=== PATIENT | female | born 1985 | race Caucasian/White ===

== ENCOUNTER 2018-12-04 12:34 | Outpatient (CLI) | payer BC ==
--- NOTE | 2018-12-04 14:15 | RAD ---
Hysterosalpingogram: DATE: 12/04/2018 HISTORY: 32-year-old female with infertility TECHNIQUE: Following placement of speculum, sterile HSG catheter placed through cervical canal and advanced into endometrial cavity. Both malformation of catheter. Introduction into the endometrial cavity. Contrast injected under fluoroscopy. Catheter removed. Spec ulum were removed. Patient tolerated procedure well. No complications. FINDINGS: Arcuate uterus. Multiple air bubbles within the endometrial cavity (visualized to be mobile during fl uoroscopy). Margins of the endometrial cavity smooth and normal. Configuration of fallopian tubes bilaterally normal. Free spillage demonstrated on the left. Catheter dislodgment due to balloon malfu nction such that spillage could not be obtained on the right. IMPRESSION: 1. Patent left fallopian tube. 2. Normal morphology of right fallopian tube. Indeterminate whether or not there is patency on the ri ght. 3. Arcuate uterus, anatomical variant.
== END 2018-12-04 12:35 | disposition home or self-care (01) ==
LOC: RAD 12:34
PROVIDERS: ATTEND Student in an Organized Health Care Education/Training Program
DX: Z31.41 Encounter for fertility testing (principal); Q51.810 Arcuate uterus
CPT/HCPCS: 58340; 74740

== ENCOUNTER 2019-01-29 14:43 | Outpatient (CLI) | payer BC ==
--- NOTE | 2019-01-29 16:02 | ULT ---
RIGHT BREAST ULTRASOUND: 01/29/19 HISTORY: 33-year-old female with focal pain at the 12 o'clock position of the right breast. FINDINGS: Sonographic evaluation of the right breast from the 12 to 3 o'clock position demonstrates no abnormal ity. IMPRESSION: BIRADS 2: Benign Finding(s) Routine annual screening mammography (for women over age 40). Age appropriate scanning based on risk factors is recommended. POS: OFF
== END 2019-01-29 14:44 | disposition home or self-care (01) ==
LOC: BICULT 14:43
PROVIDERS: ATTEND Student in an Organized Health Care Education/Training Program
DX: N64.4 Mastodynia (principal)

== ENCOUNTER 2019-03-26 09:27 | Outpatient (CLI) | payer BC ==
--- NOTE | 2019-03-26 14:01 | EKG ---
Test Reason : Blood Pressure : / mmHG Vent. Rate : 088 BPM Atrial Rate : 088 BPM P-R Int : 158 ms QRS Dur : 086 ms QT Int : 362 ms P-R-T Axes : 050 075 053 degrees QTc Int : 438 ms Normal sinus rhythm Normal ECG When compared with ECG of 13-FEB-2002 00:19, PREVIOUS ECG IS PRESENT Confirmed by PHANI BRUNER ([id number]) on 03/26/2019 2:01:08 PM Referred By: DONNA Confirmed By:PHANI BRUNER
== END 2019-03-26 09:28 | disposition home or self-care (01) ==
LOC: EKG 09:27
PROVIDERS: ATTEND Obstetrics & Gynecology
DX: R00.0 Tachycardia, unspecified (principal)
CPT/HCPCS: 93005; 93010

== ENCOUNTER 2019-08-31 19:00 | Inpatient (IN) | payer BC ==
[~2019-08-31 19:00] MED LIST: Bupivacaine 0.25% HCL 30 ML VIAL ONE
[2019-08-31 20:55] VITALS: BMI 37.5
[2019-08-31] MEDS ORDERED: hydrALAZINE 20 MG/ML VIAL SLOW IVP PRN (21:01)
[2019-08-31] MEDS ORDERED: Lidocaine 1% (PF) 30 ML VIAL SC PRN (21:01)
[2019-08-31] MEDS ORDERED: Ibuprofen 800 MG TAB PO PRN (21:01)
[2019-08-31] MEDS ORDERED: Misoprostol 200 MCG TAB PR PRN (21:01)
[2019-08-31] MEDS ORDERED: Diphenoxylate HCl/Atropine Tablet PO PRN (21:01)
[2019-08-31] MEDS ORDERED: Carboprost 250 MCG/ML AMP IM PRN (21:01)
[2019-08-31] MEDS ORDERED: Promethazine HCl 25 MG/ML VIAL IM PRN (21:01)
[2019-08-31] MEDS ORDERED: Acetaminophen 500 MG TAB PO PRN (21:01)
[2019-08-31] MEDS ORDERED: Methylergonovine 0.2 MG/ML VIAL IM PRN (21:01)
[2019-08-31] MEDS ORDERED: Butorphanol Tartrate 1 MG/ML VIAL SLOW IVP PRN (21:01)
[2019-08-31] MEDS ORDERED: HYDROcodone/Acetaminophen 5/325 mg Tablet PO PRN (21:01)
[2019-08-31] MEDS ORDERED: Ondansetron PF 4 MG/2 ML Vial IVP PRN (21:01)
[2019-08-31] MEDS ORDERED: NS w/ Oxytocin 10 units 500 ML IV SCH (21:15)
[2019-08-31] MEDS ORDERED: Penicillin G Potassium 5 MILL.UNITS in Sodium Chloride 0.9% 100 ML IVPB SCH (21:15)
[2019-08-31] MEDS: Lactated Ringer's 1,000 ML IV SCH (21:32)
[2019-08-31 21:58] LABS: Hemoglobin 10.2 g/dL (12.0-16.0); Mean Corpuscular HGB CONC 36.4 g/dL (32.0-36.0); Mean Corpuscular Hemoglobin 29.9 pg (27.0-31.0); Mean Corpuscular Volume 82.2 fL (78.0-98.0); Mean Platelet Volume 8.1 fL (7.4-10.4); Platelet Count 218 thou/uL (130-400); RBC Distribution Width 12.3 % (11.5-14.5); Red Blood Cell (RBC) Count 3.42 mill/uL (4.20-5.40); White Blood Cell (WBC) Count 8.7 thou/uL (4.8-10.8)
[2019-08-31] MEDS ORDERED: Misoprostol 100 MCG TAB VAG SCH (22:00)
[2019-08-31 22:36] LABS: Syphilis Antibody Nonreactive (Nonreactive); Syphilis Antibody Index 0.04 S/CO (<1.00 Non-Reactive)
[2019-08-31 23:07] LABS: HBSAg Index 0.19 S/CO (0-0.99); Hep B Surf Ag Non-Reactive S/CO (NonReactive)
[2019-09-01] MEDS ORDERED: Terbutaline Sulfate 1 MG/ML VIAL ONE (00:06)
[2019-09-01] MEDS: Terbutaline Sulfate 1 MG/ML VIAL SC SCH ×2 (00:07→00:27)
--- NOTE | 2019-09-01 00:36 | PDOC.EVN ---
Event Note - Event Note Event Note: I was called to room with pt in sudden severe back and abdominal pain. PT was just given 25mcg cytotect pv short time previously. abdomen hard. blood tinged clear fluid is draining vaginally. heart tones difficult to find. Pt bolused ivf. terb given 0.25mg. pain improved and contractions have become intermittent instead of continuous. heart tones obtained 100s and rising. baseline 120 with marked variability. ctx q1-2 min. pain reduced by 50%. second dose of terb given. no significant vaginal bleeding. will watch closely. It appears pt have a very exaggerated response to cytotec. Dr Stratton being updated by nurse.
[2019-09-01] MEDS: Penicillin G 2.5 MILL.units 2.5 MILL.UNITS in Premix Bag 1 BAG IVPB SCH ×4 (00:54→11:47)
[2019-09-01] MEDS ORDERED: Fentanyl 4 mcg/Bup 0.1% Cadd 100 ML ONE (02:12)
[2019-09-01] MEDS ORDERED: Acetaminophen 325 MG TAB PO PRN (02:43)
[2019-09-01] MEDS ORDERED: EPHEDRINE 25 MG/5 ML SYRINGE SLOW IVP PRN (02:43)
[2019-09-01] MEDS ORDERED: Naloxone HCl 0.4 mg/ml Vial IVP PRN ×2 (02:43)
[2019-09-01] MEDS ORDERED: Lactated Ringer's 500 ML IV PRN (02:43)
[2019-09-01] MEDS ORDERED: Ondansetron PF 4 MG/2 ML Vial IVP PRN ×2 (02:43→11:09)
[2019-09-01] MEDS ORDERED: diphenhydrAMINE 50 MG/ML VIAL IVP PRN (02:43)
[2019-09-01] MEDS ORDERED: Promethazine HCl 25 MG/ML VIAL IM PRN ×2 (02:43→11:09)
[2019-09-01] MEDS ORDERED: Communication Order-Pharmacy FS SCH (02:45)
[2019-09-01] MEDS ORDERED: Fentanyl 4 mcg/Bupivacaine 0.1% Cassette 100 ML EPIDURAL SCH (02:45)
[2019-09-01] MEDS: Lactated Ringer's 1,000 ML IV SCH (02:57)
[2019-09-01] MEDS: NS / Oxytocin 40 units/1000ml 1,000 ML IV PRN ×2 (05:40→07:40)
--- NOTE | 2019-09-01 06:15 | PDOC.LDHP ---
Labor and Delivery H&P Chief complaint: scheduled induction HPI: 33yo at 39w5d by LMP here for elective IOL. s/p cytotec x 1, SROM and spontaneous labor off of that. Current gestational age (weeks): 39 Due date: 09/03/19 Dating criteria: last menstrual period Grav: 4 Para: 2 Current complications: none Abnormal US findings: No Past Medical History: hashimotos, hx systemic mastocytosis Current medications: pre-corie vitamins Previous surgical history: dilation and curettage, other (breast reduction) Allergies/Adverse Reactions: Allergies Allergy/AdvReac Type Severity Reaction Status Date / Time cefaclor [From Ceclor] Allergy Intermediate Hives Verified 08/31/19 20:36 latex Allergy Mild Rash Verified 08/31/19 20:36 Social history: none - Physical Exam Vital signs reviewed and normal: yes General: NAD Heart: RRR Lungs: CTAB Abdomen: gravid Extremeties: no edema FHT: category 1 [place] contractions every: 2-3min - Vaginal Exam cm dilated: 10 Effacement: 100% Station: 3+ - OB Labs Blood type: O RH: positive Antibody Screen: negative HIV: negative RPR: negative HEPSAg: negative 1 hour GCT: negative GBS: negative Urine drug screen: negative Rubella: immune - Assessment L&D Assessment: elective induction at term - Plan Plan: admit to L&D, labor augmentation if indicated, informed consent obtained, anesthesia consult for pain management
--- NOTE | 2019-09-01 06:17 | PDOC.OPDEL ---
OB Operative/Delivery Note Delivery Dr/Surgeon: Chayito Assist: n/a Pre-Delivery Diagnosis: active labor Procedure/Post Delivery Dx: spontaneous vaginal delivery Weeks gestation: 39 Anesthesia: epidural - Findings A Sex: female Weight: 8 lb 12 oz - 1 min: 8 - 5 min: 9 - Additional Findings/Plan Placenta delivered: spontaneous Repaired Obstetrical Laceration: 1st degree Estimated blood loss: 850cc Compilations/Other Findings: given pitocin IV, cytotec 800 pr, methergine IM for atonic uterus with improvement Post delivery plan: routine recovery
[2019-09-01] MEDS ORDERED: NS / Oxytocin 40 units/1000ml 1,000 ML ONE (08:34)
[2019-09-01] MEDS ORDERED: Preparation H Ointment 28 GM TUBE PR PRN (11:09)
[2019-09-01] MEDS ORDERED: Bisacodyl 10 MG SUPP PR PRN (11:09)
[2019-09-01] MEDS ORDERED: Milk Of Magnesia 30 ML UDCUP PO PRN (11:09)
[2019-09-01] MEDS ORDERED: Benzocaine-Menthol 82.5 ML CAN TOP PRN (11:09)
[2019-09-01] MEDS ORDERED: HYDROcodone/Acetaminophen 5/325 mg Tablet PO PRN (11:09)
[2019-09-01] MEDS ORDERED: hydrALAZINE 20 MG/ML VIAL SLOW IVP PRN (11:09)
[2019-09-01] MEDS ORDERED: diphenhydrAMINE 25 MG CAP PO PRN (11:09)
[2019-09-01] MEDS ORDERED: Lanolin Ointment 7 GM TUBE TOP PRN (11:09)
[2019-09-01] MEDS ORDERED: NS / Oxytocin 40 units/1000ml 1,000 ML IV SCH (11:09)
[2019-09-01] MEDS: Ibuprofen 800 MG TAB PO SCH ×2 (11:38→19:47)
[2019-09-01 15:18] LABS: Hemoglobin 7.7 g/dL (12.0-16.0)
[2019-09-01] MEDS: Ferrous Sulfate 325 MG TAB PO SCH (17:05)
[2019-09-01] MEDS: HYDROcodone/Acetaminophen 5/325 mg Tablet PO PRN (19:47)
[2019-09-01] MEDS: Docusate Calcium (SURFAK) 240 MG CAP PO SCH (19:47)
[2019-09-02] MEDS: Ibuprofen 800 MG TAB PO SCH ×2 (02:41→10:50)
[2019-09-02] MEDS: HYDROcodone/Acetaminophen 5/325 mg Tablet PO PRN ×2 (02:42→10:21)
[2019-09-02 06:43] LABS: Hemoglobin 7.6 g/dL (12.0-16.0); Mean Corpuscular HGB CONC 35.2 g/dL (32.0-36.0); Mean Corpuscular Hemoglobin 29.4 pg (27.0-31.0); Mean Corpuscular Volume 83.6 fL (78.0-98.0); Mean Platelet Volume 7.5 fL (7.4-10.4); Platelet Count 140 thou/uL (130-400); RBC Distribution Width 12.6 % (11.5-14.5); Red Blood Cell (RBC) Count 2.59 mill/uL (4.20-5.40); White Blood Cell (WBC) Count 9.8 thou/uL (4.8-10.8)
[2019-09-02] MEDS: Ferrous Sulfate 325 MG TAB PO SCH (08:39)
[2019-09-02] MEDS: Docusate Calcium (SURFAK) 240 MG CAP PO SCH (08:39)
[2019-09-02] MEDS ORDERED: Prenatal Vitamin 1 TAB PO SCH (09:00)
[2019-09-02] MEDS ORDERED: Adacel (T-DAP) 0.5 ML SYRINGE IM ONE (11:09)
--- NOTE | 2019-09-02 12:59 | PDOC.PP ---
Post Progress Note Post Day #: 1 PO intake tolerated: yes Flatus: yes Ambulation: yes Vital Signs (12 hours) Temp Pulse Resp BP Pulse Ox 09/02/19 08:15 97.5 F L 91 16 129/65 99 09/02/19 05:10 98.7 F 79 16 116/72 Weight Weight 205 lb - Physical Examination General: NAD Respiratory: non-labored breathing Abdominal: no distention, appropriately TTP Fundus firm & at: umb Skin: no rash Neurological: no gross focal deficits Psychiatric: normal affect Result Diagrams: 09/02/19 06:28 Additional Labs: Post Labs Blood Type O POSITIVE 08/31/19 21:25 Hep Bs Antigen Non-Reactive S/CO (NonReactive) 08/31/19 21:26 - Assessment/Plan PPD1 s/p TSVD c/b PPH VSSAF PPH- hgb 10.2--> ebl total 1600cc-->hgb 7.7-->7.6, no s/sx of anemia, cont iron and pnv Doing well, pain controlled, lochia < menses Rh pos RImm DC home later today if baby is DC'd
[2019-09-02 13:44] VITALS: BP 132/64; TEMP 98.4
== END 2019-09-02 16:35 | disposition home or self-care (01) | DRG 807 ==
LOC: L&D 19:42 → 3SW 09-01 11:21
PROVIDERS: ADMIT Student in an Organized Health Care Education/Training Program; ATTEND Student in an Organized Health Care Education/Training Program
PROC: 10E0XZZ Delivery of Products of Conception, External Approach (ICD-10-PCS; principal; 2019-09-01)
PROC: 3E033VJ Introduction of Other Hormone into Peripheral Vein, Percutaneous Approach (ICD-10-PCS; 2019-09-01)
PROC: 0HQ9XZZ Repair Perineum Skin, External Approach (ICD-10-PCS; 2019-09-01)
PROC: 3E023GC Introduction of Other Therapeutic Substance into Muscle, Percutaneous Approach (ICD-10-PCS; 2019-09-01)
DX: O99.284 Endocrine, nutritional and metabolic diseases complicating childbirth (principal); Z37.0 Single live birth; Z3A.39 39 weeks gestation of pregnancy; O70.0 First degree perineal laceration during delivery; O72.1 Other immediate postpartum hemorrhage; E06.3 Autoimmune thyroiditis; Z88.8 Allergy status to other drugs, medicaments and biological substances; Z91.040 Latex allergy status
CPT/HCPCS: 36415; 51701; 51702; 85014; 85018; 85027; 86780; 86850; 86900; 86901; 87340; J0595; J2210; J2405; J2540; J2550; J3105; J3490; S0020

== ENCOUNTER 2019-09-05 06:53 | Inpatient (IN) | payer BC ==
[2019-09-05 08:43] VITALS: BMI 37.8
[2019-09-05] MEDS: Acetaminophen 500 MG TAB PO PRN ×3 (09:50→20:54)
[2019-09-05] MEDS ORDERED: Acetaminophen 325 MG TAB PO PRN (10:13)
[2019-09-05] MEDS ORDERED: Ondansetron ODT 4 MG TAB PO PRN (10:13)
[2019-09-05] MEDS ORDERED: Senokot S 8.6-50 MG TAB PO PRN (10:13)
[2019-09-05] MEDS ORDERED: Calcium Carbonate 500 MG ChewTAB PO PRN (10:13)
[2019-09-05] MEDS ORDERED: Ondansetron PF 4 MG/2 ML Vial IVP PRN (10:13)
[2019-09-05] MEDS ORDERED: NS 0.9% w/ 20 MEQ KCL 1,000 ML/1,000 ML BAG IV SCH ×2 (10:15→11:01)
[2019-09-05] MEDS ORDERED: Levothyroxine Sodium 88 MCG TAB PO SCH (10:30)
[2019-09-05 10:51] LABS: Prothrombin Time 13.2 sec (12.0-14.7)
[2019-09-05 10:52] LABS: PTT 35.4 sec (22.9-36.1)
[2019-09-05 10:54] LABS: Magnesium 1.6 mg/dL (1.6-2.6)
[2019-09-05 10:58] LABS: Troponin I 0.015 ng/mL (< 0.028)
[2019-09-05 11:01] LABS: Hemoglobin 8.8 g/dL (12.0-16.0); Platelet Count 233 thou/uL (130-400)
[2019-09-05 11:19] LABS: Ferritin 22.23 ng/mL (10-291); Homocysteine 6.67 umol/L (5.08-15.39)
--- NOTE | 2019-09-05 11:40 | HP ---
CHIEF COMPLAINT: Shortness of breath. HISTORY OF PRESENT ILLNESS: The patient is a 33-year-old female, who is 6 days , presented to the emergency room with above complaints. She initially presented to [facility] Emergency Room and was transferred to this facility. Over the last 2 days, the patient developed gradual worsening shortness of breath to the extent that she was unable to lie down flat. This morning, she had difficulty even with sleeping on the recliner. She had chest discomfort, that felt like heaviness in the middle of the chest, radiating to her neck. The shortness of breath was moderate in intensity. No fever, chills, nausea, vomiting, lightheadedness, dizziness, or syncope reported. She also noticed gradual worsening right lower extremity swelling. At [facility] emergency room, CT scan of the chest was consistent with acute pulmonary embolism in the right lower lobe pulmonary artery extending into multiple segmental and subsegmental branches. There was no evidence of heart strain. She received 1 dose of Lovenox and was transferred to this facility. PAST MEDICAL HISTORY: 1. Mastocytosis. 2. Rheumatoid arthritis, which was recently diagnosed. 3. History of blood transfusions. PAST SURGICAL HISTORY: 1. Appendectomy. 2. Breast surgery. 3. Cholecystectomy. 4. Tonsillectomy. 5. Adenoidectomy. 6. Recent vaginal delivery. ALLERGIES: THE PATIENT IS ALLERGIC TO LATEX AND CEFACLOR. CURRENT HOME MEDICATIONS: 1. Levothyroxine 88 mcg daily. 2. vitamin 1 tablet daily. SOCIAL HISTORY: The patient currently lives at home with her family. No alcohol, tobacco, or drug use. FAMILY HISTORY: Negative for hypercoagulable state. REVIEW OF SYSTEMS: All other review of systems were reviewed and were found negative except for mild generalized headache, that started after morphine, that was administered by the EMS. PHYSICAL EXAMINATION: VITAL SIGNS: On ER arrival, blood pressure 155/98 with respirations of 14, O2 saturation 99% on room air, temperature 98.8. GENERAL: A 33-year-old female, in no apparent distress at rest. HEENT: Head, atraumatic and normocephalic. Sclerae anicteric. Moist mucous membrane. No oral lesion. NECK: Supple. No JVD appreciated. No carotid bruit. LUNGS: Clear to auscultation bilaterally. No wheezing, rales, or rhonchi. HEART: S1 and S2 present. Regular rate and rhythm. No rubs or gallops. ABDOMEN: Soft, nontender. Bowel sounds present. No rebound or guarding. EXTREMITIES: There is 2 to 3+ edema in the right lower extremity up to the knees. No calf tenderness. No significant edema in left lower extremity. LYMPH NODES: No palpable lymph nodes in the neck. PERIPHERAL VASCULAR: Radial pulses palpable bilaterally. MUSCULOSKELETAL: No joint swelling or tenderness. SKIN: Warm and dry. LABORATORY FINDINGS: Labs from [facility]; CBC showed WBC 8.1 with hemoglobin of 8.0, hematocrit 24. CMP showed sodium 142, potassium 3, bicarbonate of 30, chloride of 107, BUN of 8, creatinine 0.8. Troponin was negative. RADIOLOGICAL FINDINGS: EKG by my review showed sinus rhythm without significant ST-T wave changes. CT angiogram of the chest as discussed above. IMPRESSION: 1. Acute pulmonary embolism involving the right lower lobe pulmonary artery. 2. Shortness of breath with chest discomfort secondary to above. 3. Hypokalemia. 4. 6 days . 5. Obesity with BMI of 37.9. 6. Mild generalized headache that started after morphine. Neurological examination is nonfocal. 7. Chronic anemia secondary to iron deficiency. PLAN: The patient will be monitored on the telemetry unit. Lovenox will be continued. I discussed with Public Health Aide on-call, Dr. Lam. We will replace potassium. We will resume levothyroxine. We will give her p.r.n. Tylenol for headaches. Bilateral lower extremity Doppler will be obtained to rule out DVT. Echocardiogram will be obtained to rule out cardiac strain. We will monitor H and H closely. The patient understands the risk associated with anticoagulation. Job ID: [id number]
[2019-09-05] MEDS ORDERED: Magnesium 2 GM/50 ML 2 GM in Premix Bag 1 BAG IVPB SCH (12:00)
[2019-09-05] MEDS ORDERED: Sodium Chloride 0.9% 10 ML ONE (14:40)
--- NOTE | 2019-09-05 14:59 | ULT ---
BILATERAL LOWER EXTREMITY VENOUS DUPLEX EXAM: Indications: Lower extremity pain and edema. FINDINGS: Deep veins of both lower extremities evaluated with ultrasound and doppler. Color doppler, spectral a nalysis and compression studies were performed. Images show normal blood flow and compression. No evidence of lower extremity DVT. IMPRESSION: Negative bilateral lower extremity venous duplex exam. POS: AGW
[2019-09-05] MEDS ORDERED: Ketorolac Tromethamine 30 MG/ML VIAL IVP SCH (15:30)
[2019-09-05] MEDS ORDERED: Potassium Chloride 10 MEQ TAB PO SCH ×2 (17:00→17:45)
[2019-09-05] MEDS ORDERED: hydrALAZINE 20 MG/ML VIAL SLOW IVP PRN ×2 (17:09→17:15)
[2019-09-05] MEDS ORDERED: Furosemide 20 MG TAB PO SCH (17:15)
[2019-09-05] MEDS ORDERED: cloNIDine 0.1 MG TAB PO PRN (17:15)
[2019-09-05] MEDS ORDERED: Amlodipine 5 MG TAB PO SCH (17:15)
[2019-09-05] MEDS: Amlodipine 5 MG TAB PO SCH (20:50)
[2019-09-05] MEDS: Enoxaparin Sodium 100 MG/ML SYRINGE SC SCH (20:51)
--- NOTE | 2019-09-05 21:30 | CON ---
DATE OF CONSULTATION: 09/05/2019 REASON FOR CONSULTATION: Vaginal bleeding after . HISTORY OF PRESENT ILLNESS: This is a very pleasant 33-year-old female, who is 6 days and presented with shortness of breath to the [facility] Emergency Room, where she was found to have pulmonary embolism and transferred to [place] for further evaluation and care. The [employer] [employer] team was consulted because the patient continued to have vaginal bleeding during the period. After discussion with the patient, she noted that the bleeding had slowed down significantly upon discharge and picked up a little bit here in the last couple of days. She describes it as still less than a period. The patient states that she is not having to go through multiple pads over the course of the day. She mostly notes bleeding when using the restroom. She denies any associated dizziness. Of note, the patient did have hemorrhage requiring Cytotec, IV Pitocin, and Methergine. Her hemoglobin on discharge from the hospital was 7.6 with a hematocrit of 21.6. The patient is being managed by the primary team regarding her pulmonary embolism. She is currently on therapeutic Lovenox. Of note, the primary team does plan to change the patient over to Eliquis for continued anticoagulation in the outpatient setting. After discussion with the patient, she does desire to breastfeed. It was explained that Lovenox is safe while . There are not good studies right now for recommendation for against the newer anticoagulant agents. Thus, it is recommended that if the patient does desire to breastfeed that she continue on the Lovenox in the outpatient setting. Warfarin is also an option; however, this does take more monitoring. PAST MEDICAL HISTORY: 1. Mastocytosis. 2. Rheumatoid arthritis, recently diagnosed. 3. History of blood transfusions. PAST SURGICAL HISTORY: 1. Appendectomy. 2. Breast reduction surgery. 3. Cholecystectomy. 4. Tonsillectomy. 5. Adenoidectomy. ALLERGIES: CEFACLOR. CURRENT HOME MEDICATIONS: 1. Levothyroxine 88 mcg daily. 2. vitamins 1 tablet daily. SOCIAL HISTORY: The patient denies tobacco, alcohol, or drug use. PHYSICAL EXAMINATION: VITAL SIGNS: Temperature 98.1, pulse 59, respiratory rate 18, O2 saturation 92 % on 2 L nasal cannula, blood pressure 157/77. GENERAL: Alert and oriented x3, in no apparent distress. HEENT: Head, atraumatic and normocephalic. Sclera anicteric. Moist mucous membranes. LUNGS: No acute respiratory distress. ABDOMEN: Soft, nontender. No rebound or guarding. Uterus palpated firm and palpated at about 14 cm fundal height. EXTREMITIES: Edema noted in bilateral lower extremities with right greater than left. LABORATORY FINDINGS: Upon review of record from the patient's discharge, the patient had a white blood cell count of 8.1 with a hemoglobin of 8.0 at [facility] Emergency Department. Initial blood work done during this hospitalization at [place] shows a hemoglobin of 8.8 with hematocrit 25.7. PT 13.2, INR 1, and PTT 35.4, D-dimer 3. Magnesium 1.6, iron 31, TIBC 478, ferritin 22.23, troponin 0.015, BNP 538.6, and homocystine 6.67. RADIOLOGICAL FINDINGS: CT angiogram performed at outside ED showed acute pulmonary embolism in the right lower lobe pulmonary artery extending into multiple segmental and subsegmental branches without evidence of heart strain. ASSESSMENT AND PLAN: 1. Vaginal bleeding, status post vaginal delivery: The patient's current bleeding seems consistent with expected lochia in the period. What she describes does not sound like more than would be expected. Continue to monitor blood loss. It is okay to continue with therapeutic Lovenox for treatment of a pulmonary embolism. We will be happy to follow along during her hospital stay. 2. Acute pulmonary embolism involving right lower lobe pulmonary artery: Primary team is managing. The patient is currently on therapeutic Lovenox with plans to transition to Eliquis in the outpatient setting. Of note, Eliquis has not been approved for and the patient states she does desire to breastfeed. Lovenox and warfarin are both appropriate in a lactating mother, who desires to continue . We did discuss with the patient that should she decide to breastfeed, recommend continuation of Lovenox or transition to warfarin upon discharge home. 3. Hypokalemia: Replace as needed. 4. Obesity with a BMI of 37.9 5. Chronic anemia secondary to iron deficiency: The patient did have a hemorrhage, which may have worsened her anemia in the state. Recommend iron supplementation for anemia. This patient was seen with Dr. Jaxson Lam, who was present for the consultation and agreeable with the above plan. We will be happy to follow along if you have any further questions regarding this case. Thank you so much for the consultation. Examined with Dr. Chau. PPD#6 s/p complicated by PPH now with dx of PE by CT. Currently stable on therapeutic Lovenox. Lochia is as expected at this time and Hgb has improved since delivery. Will follow with you. Job ID: [id number] MTDD
[2019-09-06 04:36] LABS: Hemoglobin 9.1 g/dL (12.0-16.0); Platelet Count 246 thou/uL (130-400)
[2019-09-06 05:02] LABS: Anion Gap 13 mmol/L (10-20); BUN (Urea Nitrogen) 6 mg/dL (7.0-18.7); Calc. Creatinine Clearance 163 mL/min (70-130); Calcium 8.3 mg/dL (7.8-10.44); Carbon Dioxide 27 mmol/L (22-29); Chloride 104 mmol/L (98-107); Estimated GFR-MDRD Greater than 90; Glucose 91 mg/dL (70-105); Potassium 3.1 mmol/L (3.5-5.1); Sodium 141 mmol/L (136-145)
[2019-09-06] MEDS: Levothyroxine Sodium 88 MCG TAB PO SCH (05:31)
[2019-09-06] MEDS: Acetaminophen 500 MG TAB PO PRN ×3 (05:31→19:17)
[2019-09-06] MEDS ORDERED: Levothyroxine Sodium 88 MCG TAB PO SCH (06:00)
[2019-09-06] MEDS ORDERED: Potassium Chloride 10 MEQ TAB PO SCH (08:00)
[2019-09-06] MEDS: Potassium Chloride 10 MEQ TAB PO SCH ×2 (08:33→17:25)
[2019-09-06] MEDS: Prenatal Vitamin 1 TAB PO SCH (08:34)
[2019-09-06] MEDS: Enoxaparin Sodium 100 MG/ML SYRINGE SC SCH ×2 (08:34→21:06)
[2019-09-06] MEDS: Amlodipine 5 MG TAB PO SCH ×2 (08:34→21:06)
[2019-09-06] MEDS ORDERED: Amlodipine 5 MG TAB PO SCH (09:00)
[2019-09-06 10:21] LABS: ALT (SGPT) 21 U/L (8-55); AST (SGOT) 25 U/L (5-34); Albumin 3.4 g/dL (3.5-5.0); Alkaline Phosphatase 138 U/L (40-110); Bilirubin, Direct 0.4 mg/dL (0.1-0.3); Bilirubin, Total 0.5 mg/dL (0.2-1.2); Protein, Total 6.9 g/dL (6.0-8.3)
[2019-09-06] MEDS: Furosemide 20 MG TAB PO SCH (10:30)
--- NOTE | 2019-09-06 10:50 | PDOC.BPN ---
<Kelsea Griffin - Last Filed: 09/06/19 10:51> - Brief Progress Note 09/06/2019 Review of BP overnight show persistent BP's in severe range (>160/110) which is concerning in patient day #5 (delivery day 08/31). Patient at risk for pre-E and complications of stroke and seizure with BP's in this range. She was started on Norvasc BID. Her BP has improved slightly since starting BP medications. However, on evaluation today, patient's reflexes were very brisk which is concerning. We will transfer to L&D to start patient on Magnesium. Will monitor strict I&O's to ensure adequate diuresis. Will adjust BP 's as appropriate. Patient did have a severe headache yesterday that she reports improved when her BP was treated. Of note, patient being treated for pulmonary embolism. She is currently on therapeutic lovenox. She does desire to continue . Ok to breastfeed while on lovenox. Patient does report improvement in shortness of breath. She states she was able to sleep last night. She currently has an hypercoag panel pending. Patient currently stable and doing well. BP's 145/86-183/67 General: A&O x3, NAD Neuro: DTR's 4+ in LE's bilaterally Ext: Trace bilateral lower extremity edema, non-pitting Patient seen by Dr. Malone and plan discussed. A/P: 1. Pre-E severe features: Will transfer to L&D. Start patient on Mg. Monitor BP' s. Adjust BP medications as necessary. Will keep patient on Mg for 24 hours. Monitor I&O's. 2. Pulmonary embolism: On therapeutic lovenox. Managed per primary team. Kelsea Griffin, PGY-3 <Ash Malone - Last Filed: 09/07/19 08:18> Addendum - Attending - Attending Attestation Date/Time: 09/07/19 0806 I personally evaluated the patient and discussed the management with Dr. Griffin I agree with the History, Examination, Assessment and Plan documented above with any addition or exceptions noted below. 15min spent face to face discussing our concerns for preeclampsia and the complications there of. DTR very brisk. BP severe range yesterday treated with norvasc. HEadache present. Will bring to the floor for mag and monitoring
[2019-09-06] MEDS ORDERED: Magnesium Sulfate 20 gm/500 ml 20 GM/500 ML BAG ONE (10:59)
[2019-09-06] MEDS ORDERED: Calcium Gluconate 4.6 MEQ in Sodium Chloride 0.9% 100 ML IVPB PRN (11:35)
[2019-09-06] MEDS ORDERED: Magnesium Sulfate 20 GM/WATER 500 ML BAG IVPB SCH (11:35)
[2019-09-06 13:22] LABS: Protein C Activity 105 % (78-152)
[2019-09-06] MEDS ORDERED: Ibuprofen 800 MG TAB PO PRN (14:11)
[2019-09-06 14:33] LABS: Creatinine, Urine Less than 20.00 mg/dL (47-110); Protein, Urine Random Quant Less than 10 mg/dL (1-14)
--- NOTE | 2019-09-06 15:34 | PDOC.HOSPP ---
- Subjective Encounter Date: 09/06/19 Encounter Time: 15:32 Subjective: Ms. Roy was seen today in follow-up of PE. She also developed Pre- eclampsia and has been moved to L&D. She says her headache has improved. She denies feeling short of breath, and says those symptoms have improved as well. She has less chest " heaviness". - Objective Vital Signs & Weight: Vital Signs (12 hours) Temp Pulse Resp BP Pulse Ox 09/06/19 08:34 82 09/06/19 08:00 96 09/06/19 07:46 98.2 F 82 20 145/86 H 96 Weight Admit Weight 207 lb Weight 207 lb I&O: 09/05/19 09/06/19 09/07/19 06:59 06:59 06:59 Intake Total 740 Output Total 1200 Balance -460 Result Diagrams: 09/06/19 04:22 09/06/19 04:22 Hospitalist ROS - Medication Medications: Active Medications Generic Name Dose Route Start Last Admin Trade Name Freq PRN Reason Stop Dose Admin Acetaminophen 1,000 mg 09/05/19 09:30 09/06/19 11:52 Tylenol PO 1,000 mg Q6H PRN Administration Headache/Fever or Pain Amlodipine Besylate 5 mg 09/05/19 21:00 09/06/19 08:34 Norvasc PO 5 mg BID SHARON Administration Enoxaparin Sodium 90 mg 09/05/19 21:00 09/06/19 08:34 Lovenox SC 90 mg 0900,2100 SHARON Administration Furosemide 20 mg 09/06/19 09:00 09/06/19 10:30 Lasix PO Not Given DAILY SHARON Ibuprofen 800 mg 09/06/19 14:11 09/06/19 14:35 Motrin PO 800 mg Q8H PRN Administration Headache Levothyroxine Sodium 88 mcg 09/06/19 06:00 09/06/19 05:31 Synthroid PO 88 mcg 0600 SHARON Administration Potassium Chloride 40 meq 09/06/19 08:00 09/06/19 08:33 Klor-Con 10 PO 09/07/19 08:01 40 meq BID-WM SHARON Administration Multivit/Folic Acid/Iron 1 tab 09/06/19 09:00 09/06/19 08:34 Vitamin PO 1 tab DAILY SHARON Administration Sodium Chloride 10 ml 09/05/19 10:08 09/06/19 08:35 Flush - Normal Saline IVF 10 ml PRN PRN Administration Saline Flush - Exam Eye: PERRL, anicteric sclera Heart: RRR, no murmur, no gallops, no rubs, normal peripheral pulses Respiratory: CTAB, no wheezes, no rales, no ronchi, normal chest expansion, no tachypnea, normal percussion Gastrointestinal: soft, non-tender, non-distended, normal bowel sounds, no palpable masses, no hepatomegaly Extremities: no cyanosis, 1+ LE edema Hosp A/P (1) Pulmonary embolus, right Code(s): I26.99 - OTHER PULMONARY EMBOLISM WITHOUT ACUTE COR PULMONALE Status : Acute (2) Pre-eclampsia Code(s): O14.90 - UNSPECIFIED PRE-ECLAMPSIA, UNSPECIFIED TRIMESTER Status: Acute (3) Loree's thyroiditis Code(s): E06.3 - AUTOIMMUNE THYROIDITIS Status: Chronic - Plan * Pulmonary Embolus- she wishes to breast feed her child, and Eliquis is contraindicated * Will transition her to coumadin- the risks and benefits were explained * Will consult Case Management for Coumadin clinic- to aid in outpatient management, Commercial Escrow Officer consult * HTN- and Pre-eclampsia- she has been placed on Magnesium infusion- her blood pressures have been trending down *
[2019-09-06] MEDS: Warfarin Sodium 5 MG TAB PO SCH (17:25)
[2019-09-06] MEDS: Magnesium Sulfate 20 gm/500 ml 20 GM/500 ML BAG IVPB SCH (19:52)
[2019-09-06] MEDS: Metoclopramide HCl 10 MG/2 ML VIAL IVP PRN ×3 (19:52→21:05)
[2019-09-06] MEDS: diphenhydrAMINE 50 MG/ML VIAL IVP PRN ×2 (19:52→21:05)
[2019-09-07] MEDS: Acetaminophen 500 MG TAB PO PRN ×4 (03:24→21:00)
[2019-09-07] MEDS ORDERED: traMADol HCl 50 MG TAB PO PRN (03:36)
[2019-09-07] MEDS: Levothyroxine Sodium 88 MCG TAB PO SCH (05:54)
[2019-09-07] MEDS: Magnesium Sulfate 20 gm/500 ml 20 GM/500 ML BAG IVPB SCH (05:55)
[2019-09-07 07:20] LABS: Hemoglobin 10.6 g/dL (12.0-16.0); Platelet Count 317 thou/uL (130-400)
[2019-09-07 07:26] LABS: INR-International Normal Ratio 0.9; Prothrombin Time 12.3 sec (12.0-14.7)
[2019-09-07 07:36] LABS: Anion Gap 14 mmol/L (10-20); BUN (Urea Nitrogen) 7 mg/dL (7.0-18.7); Calc. Creatinine Clearance 173 mL/min (70-130); Calcium 7.1 mg/dL (7.8-10.44); Carbon Dioxide 27 mmol/L (22-29); Chloride 103 mmol/L (98-107); Estimated GFR-MDRD Greater than 90; Glucose 97 mg/dL (70-105); Potassium 3.4 mmol/L (3.5-5.1); Sodium 141 mmol/L (136-145)
--- NOTE | 2019-09-07 08:10 | PRG ---
DATE OF SERVICE: 09/07/2019 SUBJECTIVE: The patient is a 33-year-old female, who is approximately 6 days out from delivery, who was admitted for pulmonary embolism. She was noted to have on the day of admission, severe range blood pressures and persistent headache due to concerns of preeclampsia and extremely brisk reflexes. Decision was made to bring the patient up for magnesium. During the course of her time here, blood pressures have been under decent control with the Norvasc that had previously been prescribed and her urine output has been great. The last 24 hours a primary concern has been a persistent headache that she gets some relief with from Tylenol, had some relief with a migraine cocktail, but is still present this morning. The patient reports she has not had caffeine for the last few days and may be also contributing to the headache, but reports that it is much better than when she first arrived. Blood pressure this morning was 140/98, heart rate of 96, saturating 93% to 96% on room air. In general, she appears to be in no acute distress. She is alert, oriented, cooperative, and pleasant to interact with. She appears to be without any shortness of breath. Urine output has been at 4000 mL over the last 24 hours. ASSESSMENT AND PLAN: The patient is a 33-year-old female, who is now day 6, on Lovenox, transitioned to Coumadin for pulmonary embolism, diagnosed day before yesterday. Her course has been complicated by preeclampsia, requiring magnesium for seizure prophylaxis, given her great diuresis in the last 24 hours, we are discontinuing her magnesium this morning and will monitor her blood pressures through the day here in labor and delivery with the plans to transfer her back to telemetry should she not require any more care . The patient's headache could be resulting from various things including the medications that she is taking, caffeine withdrawal complications secondary to her severe range headaches for the course of the day, a couple of days ago. The headache overall is much better than it was before, and she reports it is managed fairly well with Tylenol. We will be changing her Tylenol to a more frequent dosing as it seems to last only for a couple of hours to see if that is helpful. Her primary provider, Dr. Thomason will monitor her transition to Coumadin. Job ID: [id number]
[2019-09-07 08:42] LABS: HEX PHOS LA Tube 1 47.8 SEC; HEX PHOS LA Tube 2 39.9 SEC; Hexagonal Phospholipid Neut 7.9 SEC (0-8.0)
[2019-09-07] MEDS: Amlodipine 5 MG TAB PO SCH ×2 (09:21→21:01)
[2019-09-07] MEDS: Prenatal Vitamin 1 TAB PO SCH (09:21)
[2019-09-07] MEDS: Enoxaparin Sodium 100 MG/ML SYRINGE SC SCH ×2 (09:21→21:07)
--- NOTE | 2019-09-07 09:24 | PDOC.BPN ---
- Brief Progress Note Patient doing well this morning and without complaints. BPs normal to mild range on Norvasc. Mag d/c'd last night. Ready to transition to the floor for continued management of PE. May follow up in Dr. Stratton's clinic next week for BP check; patient will call and make appointment. We will sign off at this point but remain available for any other OB related questions.
[2019-09-07] MEDS: Furosemide 20 MG TAB PO SCH (09:28)
[2019-09-07] MEDS: Potassium Chloride 10 MEQ TAB PO SCH (09:28)
--- NOTE | 2019-09-07 14:45 | PDOC.HOSPP ---
- Subjective Encounter Date: 09/07/19 Encounter Time: 14:43 Subjective: Ms. Roy was seen today in follow-up of PE. She does not have any new complaints.She denies chest pain or shortness of breath. - Objective Vital Signs & Weight: Vital Signs (12 hours) Pulse BP 09/07/19 09:21 81 143/80 H Weight Admit Weight 207 lb Weight 207 lb I&O: 09/06/19 09/07/19 09/08/19 06:59 06:59 06:59 Intake Total 740 Output Total 1200 Balance -460 Result Diagrams: 09/07/19 06:59 09/07/19 06:59 Hospitalist ROS - Medication Medications: Active Medications Generic Name Dose Route Start Last Admin Trade Name Freq PRN Reason Stop Dose Admin Acetaminophen 500 mg 09/07/19 07:43 09/07/19 09:21 Tylenol PO 500 mg Q4H PRN Administration Headache/Fever or Pain Amlodipine Besylate 5 mg 09/05/19 21:00 09/07/19 09:21 Norvasc PO 5 mg BID SHARON Administration Enoxaparin Sodium 90 mg 09/05/19 21:00 09/07/19 09:21 Lovenox SC 90 mg 0900,2100 SHARON Administration Furosemide 20 mg 09/06/19 09:00 09/07/19 09:28 Lasix PO Not Given DAILY SHARON Levothyroxine Sodium 88 mcg 09/06/19 06:00 09/07/19 05:54 Synthroid PO 88 mcg 0600 SHARON Administration Metoclopramide HCl 10 mg 09/06/19 19:41 09/06/19 21:05 Reglan IVP 10 mg Q30M PRN Administration Headache Multivit/Folic Acid/Iron 1 tab 09/06/19 09:00 09/07/19 09:21 Vitamin PO 1 tab DAILY SHARON Administration Sodium Chloride 10 ml 09/05/19 10:08 09/06/19 08:35 Flush - Normal Saline IVF 10 ml PRN PRN Administration Saline Flush Tramadol HCl 50 mg 09/07/19 03:36 09/07/19 04:01 Ultram PO 50 mg Q4H PRN Administration Pain Warfarin Sodium 5 mg 09/06/19 17:00 09/06/19 17:25 Coumadin PO 5 mg 1700 SHARON Administration - Exam Eye: PERRL, anicteric sclera Heart: RRR, no murmur, no gallops, no rubs, normal peripheral pulses Respiratory: CTAB, no wheezes, no rales, no ronchi, normal chest expansion Gastrointestinal: soft, non-tender, normal bowel sounds Extremities: no cyanosis, no clubbing, no edema Hosp A/P (1) Pulmonary embolus, right Code(s): I26.99 - OTHER PULMONARY EMBOLISM WITHOUT ACUTE COR PULMONALE Status : Acute (2) Pre-eclampsia Code(s): O14.90 - UNSPECIFIED PRE-ECLAMPSIA, UNSPECIFIED TRIMESTER Status: Acute (3) 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
[2019-09-07] MEDS: Warfarin Sodium 5 MG TAB PO SCH (17:01)
[2019-09-08] MEDS: Acetaminophen 500 MG TAB PO PRN ×5 (03:09→22:45)
[2019-09-08 07:01] LABS: Platelet Count 340 thou/uL (130-400)
[2019-09-08] MEDS: Levothyroxine Sodium 88 MCG TAB PO SCH (07:06)
[2019-09-08 07:12] LABS: Prothrombin Time 13.3 sec (12.0-14.7)
[2019-09-08 07:18] LABS: Anion Gap 11 mmol/L (10-20); BUN (Urea Nitrogen) 9 mg/dL (7.0-18.7); Calc. Creatinine Clearance 178 mL/min (70-130); Calcium 8.1 mg/dL (7.8-10.44); Carbon Dioxide 26 mmol/L (22-29); Chloride 105 mmol/L (98-107); Estimated GFR-MDRD Greater than 90; Glucose 82 mg/dL (70-105); Potassium 3.2 mmol/L (3.5-5.1); Sodium 139 mmol/L (136-145)
--- NOTE | 2019-09-08 07:20 | PDOC.HOSPP ---
- Subjective Encounter Date: 09/08/19 Subjective: Ms. Roy was seen today in follow-up of PE. The patient states she is doing well, no new complaints. She denies any chest pain or shortness of breath. - Objective Vital Signs & Weight: Vital Signs (12 hours) Temp Pulse Resp BP BP 09/08/19 00:00 98.4 F 75 20 142/84 H 09/07/19 21:01 88 133/91 H 09/07/19 20:00 98.3 F 88 20 133/91 H Weight Admit Weight 207 lb Weight 207 lb Result Diagrams: 09/08/19 06:51 09/08/19 06:51 Hospitalist ROS - Medication Medications: Active Medications Generic Name Dose Route Start Last Admin Trade Name Freq PRN Reason Stop Dose Admin Acetaminophen 500 mg 09/07/19 07:43 09/08/19 07:08 Tylenol PO 500 mg Q4H PRN Administration Headache/Fever or Pain Amlodipine Besylate 5 mg 09/05/19 21:00 09/07/19 21:01 Norvasc PO 5 mg BID SHARON Administration Enoxaparin Sodium 90 mg 09/05/19 21:00 09/07/19 21:07 Lovenox SC 90 mg 0900,2100 SHARON Administration Furosemide 20 mg 09/06/19 09:00 09/07/19 09:28 Lasix PO Not Given DAILY SHARON Levothyroxine Sodium 88 mcg 09/06/19 06:00 09/08/19 07:06 Synthroid PO 88 mcg 0600 SHARON Administration Metoclopramide HCl 10 mg 09/06/19 19:41 09/06/19 21:05 Reglan IVP 10 mg Q30M PRN Administration Headache Multivit/Folic Acid/Iron 1 tab 09/06/19 09:00 09/07/19 09:21 Vitamin PO 1 tab DAILY SHARON Administration Sodium Chloride 10 ml 09/05/19 10:08 09/06/19 08:35 Flush - Normal Saline IVF 10 ml PRN PRN Administration Saline Flush Tramadol HCl 50 mg 09/07/19 03:36 09/07/19 04:01 Ultram PO 50 mg Q4H PRN Administration Pain Warfarin Sodium 5 mg 09/06/19 17:00 09/07/19 17:01 Coumadin PO 5 mg 1700 SHARON Administration - Exam Eye: PERRL, anicteric sclera ENT: normocephalic atraumatic Heart: RRR, no murmur, no gallops, no rubs, normal peripheral pulses Respiratory: CTAB, no wheezes, no rales, no ronchi, normal chest expansion Extremities: no cyanosis, no clubbing, no edema Hosp A/P (1) Pulmonary embolus, right Code(s): I26.99 - OTHER PULMONARY EMBOLISM WITHOUT ACUTE COR PULMONALE Status : Acute (2) Pre-eclampsia Code(s): O14.90 - UNSPECIFIED PRE-ECLAMPSIA, UNSPECIFIED TRIMESTER Status: Acute (3) 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 Zuniga MS-2. Ms. Roy is feeling fine. She denies dyspnea or chest pain. She is anxious to be discharged from the hospital. Her exam her lungs are clear and heart sounds jorge. No extremity edema. Her INR is 1.0. After a long discussion with the patient we will plan to discharge her home tomorrow, once arrangements have been made for the coumadin clinic. She can be discharged with Lovenox and coumadin. She will need to take both until her INR is therapeutic. She will be informed of her INR from the coumadin clinic, and when to stop Lovenox. If her INR is not therapeautic by the weekend, then should she have signs of bruising or bleeding ( and these were explained) then she should go to the ER, or Urgent care to have her INR checked, and be evaluated.
[2019-09-08] MEDS ORDERED: Potassium Chloride 20 MEQ TAB PO SCH ×2 (08:00→13:00)
[2019-09-08] MEDS: Amlodipine 5 MG TAB PO SCH ×2 (09:03→21:37)
[2019-09-08] MEDS: Prenatal Vitamin 1 TAB PO SCH (09:06)
[2019-09-08] MEDS: Enoxaparin Sodium 100 MG/ML SYRINGE SC SCH ×2 (09:07→21:39)
[2019-09-08] MEDS: Furosemide 20 MG TAB PO SCH ×2 (09:07→16:49)
[2019-09-08] MEDS ORDERED: Warfarin Sodium 10 MG TAB PO SCH (17:00)
[2019-09-08] MEDS ORDERED: hydrALAZINE 10 MG TAB PO SCH (22:45)
[2019-09-09] MEDS: Acetaminophen 500 MG TAB PO PRN ×2 (03:23→11:20)
[2019-09-09] MEDS: Levothyroxine Sodium 88 MCG TAB PO SCH (05:49)
--- NOTE | 2019-09-09 07:21 | PDOC.HOSPP ---
- Subjective Encounter Date: 09/09/19 Encounter Time: 08:22 Subjective: Ms. Roy was seen today in follow-up for PE. She denies any chest pain or shortness of breath. The patient does report episodes of high blood pressure last night. Her BP was checked 4x with the levels ranging in the 160s-170s systolic. She reports headache described as "feeling her heartbeat in her head" associated with the episode of elevated blood pressure. She plans to purchase a blood pressure cuff to monitor her BP at home once discharged. The patient is scheduled for follow up on post- preeclampsia on Friday with her OB. - Objective Vital Signs & Weight: Vital Signs (12 hours) Pulse BP 09/08/19 22:51 66 167/100 H 09/08/19 21:37 83 172/98 H Weight Admit Weight 207 lb Weight 207 lb Result Diagrams: 09/09/19 07:08 09/09/19 07:08 Hospitalist ROS - Medication Medications: Active Medications Generic Name Dose Route Start Last Admin Trade Name Freq PRN Reason Stop Dose Admin Acetaminophen 500 mg 09/07/19 07:43 09/09/19 03:23 Tylenol PO 500 mg Q4H PRN Administration Headache/Fever or Pain Amlodipine Besylate 5 mg 09/05/19 21:00 09/08/19 21:37 Norvasc PO 5 mg BID SHARON Administration Enoxaparin Sodium 90 mg 09/05/19 21:00 09/08/19 21:39 Lovenox SC 90 mg 0900,2100 SHARON Administration Levothyroxine Sodium 88 mcg 09/06/19 06:00 09/09/19 05:49 Synthroid PO 88 mcg 0600 SHARON Administration Metoclopramide HCl 10 mg 09/06/19 19:41 09/06/19 21:05 Reglan IVP 10 mg Q30M PRN Administration Headache Multivit/Folic Acid/Iron 1 tab 09/06/19 09:00 09/08/19 09:06 Vitamin PO 1 tab DAILY SHARON Administration Sodium Chloride 10 ml 09/05/19 10:08 09/06/19 08:35 Flush - Normal Saline IVF 10 ml PRN PRN Administration Saline Flush Tramadol HCl 50 mg 09/07/19 03:36 09/07/19 04:01 Ultram PO 50 mg Q4H PRN Administration Pain Warfarin Sodium 10 mg 09/08/19 17:00 09/08/19 17:18 Coumadin PO 10 mg 1700 SHARON Administration - Exam Eye: PERRL, anicteric sclera ENT: normocephalic atraumatic Heart: RRR, no murmur, no gallops, no rubs, normal peripheral pulses Respiratory: CTAB, no wheezes, no rales, no ronchi, normal chest expansion, no tachypnea Extremities: no cyanosis, no clubbing, no edema Hosp A/P (1) Pulmonary embolus, right Code(s): I26.99 - OTHER PULMONARY EMBOLISM WITHOUT ACUTE COR PULMONALE Status : Acute (2) Pre-eclampsia Code(s): O14.90 - UNSPECIFIED PRE-ECLAMPSIA, UNSPECIFIED TRIMESTER Status: Acute (3) 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 Limon MS-2. Ms. Roy is feeling fine. She denies dyspnea or chest pain. She had an episode of elevated blood pressure last night. She also had some elevation in her blood pressure this morning. Her exam is unchanged. No increase in edema of the lower extremities. This was discussed with OB- BRAND PROTECTION MANAGER. Will add Hydralazine to her regimen, scheduled, as well as Hydralazine as needed for SBP >160 or DBP > 100. She is stable for discharge home.
[2019-09-09 07:46] LABS: Hemoglobin 11.1 g/dL (12.0-16.0); Platelet Count 439 thou/uL (130-400)
[2019-09-09 07:52] LABS: Prothrombin Time 13.6 sec (12.0-14.7)
[2019-09-09 08:05] LABS: Anion Gap 14 mmol/L (10-20); BUN (Urea Nitrogen) 10 mg/dL (7.0-18.7); Calc. Creatinine Clearance 168 mL/min (70-130); Calcium 8.9 mg/dL (7.8-10.44); Carbon Dioxide 22 mmol/L (22-29); Chloride 106 mmol/L (98-107); Estimated GFR-MDRD Greater than 90; Glucose 96 mg/dL (70-105); Sodium 138 mmol/L (136-145)
[2019-09-09] MEDS: Enoxaparin Sodium 100 MG/ML SYRINGE SC SCH (09:18)
[2019-09-09] MEDS: Prenatal Vitamin 1 TAB PO SCH (09:18)
[2019-09-09] MEDS: Amlodipine 5 MG TAB PO SCH (09:19)
[2019-09-09 13:33] VITALS: TEMP 98.6
[2019-09-09] MEDS ORDERED: hydrALAZINE 25 MG TAB PO SCH (15:00)
[2019-09-09 15:07] VITALS: BP 148/98
[2019-09-09 16:01] LABS: Cardiolipin IgA Ab 3.9 APL-U/mL (<14 Negative); Cardiolipin IgG Ab 0.8 GPL-U/mL (<10 Negative); Cardiolipin IgM Ab 5.5 MPL-U/mL (<10 Negative); EliA APS New Method **** NEW METHOD ****
--- NOTE | 2019-09-09 21:32 | DIS ---
DATE OF ADMISSION: 09/05/2019 DATE OF DISCHARGE: 09/09/2019 DISCHARGE DISPOSITION: Home. DISCHARGE DIAGNOSES: 1. Acute pulmonary embolism. 2. Hypertension or preeclampsia. 3. Rheumatoid arthritis. 4. History of mastocytosis. DISCHARGE MEDICATIONS: Include: 1. Coumadin 7.5 mg p.o. daily. 2. Apresoline 25 mg p.o. t.i.d. and then also p.r.n. for systolic blood pressure greater than 160 or diastolic greater than 100. 3. Norvasc 5 mg p.o. b.i.d. 4. vitamins once daily. 5. Levothyroxine 88 mcg daily. 6. Lovenox 90 mg subcu twice a day. IMAGING DONE DURING THE HOSPITAL STAY: She had lower extremity venous Dopplers, which were negative for DVT. She had an echocardiogram in which the ejection fraction was estimated at 50% to 55%. There was some mitral regurgitation. The patient had a CT angiogram of the chest showing a pulmonary embolism in the right pulmonary artery at the outside emergency room. CODE STATUS: Full code. ALLERGIES: CEFACLOR AND LATEX. HOSPITAL COURSE: Ms. Roy is a pleasant 33-year-old female, who presented to the emergency room complaining of shortness of breath and chest tightness. The full details of which are outlined in the history of present illness. She was evaluated at the [facility] ER and found to have an acute pulmonary embolus. She was transferred to our facility for further evaluation. It is noted that she is 4 or 5 days postop and for this reason, ALPINE PATROLLER was consulted. During the course of her hospital stay, she developed a preeclampsia with her blood pressures going as high as 180/100 systolic. She was moved to the and D, and placed on magnesium infusion. Her symptoms improved and blood pressure as well. However, her blood pressure did not return completely to baseline. For this reason, she is being discharged home on amlodipine 5 mg twice daily as well as hydralazine as needed and scheduled. For the pulmonary embolism, she will be discharged home on Lovenox as well as Coumadin as her INR was subtherapeutic after three days of Coumadin. She will be bridging or she will be on the Lovenox as well as Coumadin until her INR is therapeutic and then the Lovenox will be discontinued. The goal INR is between 2 and 3. These instructions were faxed over to the Coumadin Clinic. Case management was consulted to help with arrangements for placement in the Coumadin Clinic and also for her outpatient followup with her primary care physician, which will be tomorrow morning. She was given instructions on signs of excessive bleeding such as gum bleeding, easy bruising, etc and if this was to happen, to go to Urgent Care or the emergency room. She was also instructed on severe headache and increased edema with regard to the pre-eclampsia and if she were to have any of the symptoms, then to go to the ER as well. Job ID: [id number]
== END 2019-09-09 16:57 | disposition home or self-care (01) | DRG 776 ==
LOC: T4-B 07:47 → 2NO 08:18 → L&D 09-06 12:15
PROVIDERS: ADMIT Internal Medicine; ATTEND Internal Medicine
DX: O88.23 Thromboembolism in the puerperium (principal); O99.285 Endocrine, nutritional and metabolic diseases complicating the puerperium; E87.6 Hypokalemia; O99.215 Obesity complicating the puerperium; E66.9 Obesity, unspecified; O90.81 Anemia of the puerperium; O14.15 Severe pre-eclampsia, complicating the puerperium; O90.5 Postpartum thyroiditis; D50.9 Iron deficiency anemia, unspecified; Z88.8 Allergy status to other drugs, medicaments and biological substances; Z91.040 Latex allergy status
CPT/HCPCS: 36415; 80048; 80076; 81240; 81241; 82570; 82728; 83090; 83540; 83550; 83735; 83880; 84156; 84484; 85014; 85018; 85049; 85240; 85300; 85303; 85305; 85307; 85379; 85598; 85610; 85730; 86147; 86850; 86900; 86901; 93306; 93970; 94760; J1200; J1650; J1885; J2765; J3475; J3480

== ENCOUNTER 2019-11-25 07:50 | Outpatient (CLI) | payer BC, OTHER ==
[2019-08-30 18:45] LABS: SARS-CoV-2 MS2 Positive; SARS-CoV-2 N Gene Negative; SARS-CoV-2 S Gene Negative; SARS-CoV-2 by NAA Not Detected (NotDetected); SARS-CoV-2 orf1ab Negative
[2019-11-25 14:32] LABS: Hemoglobin 12.2 g/dL (12.0-16.0); Mean Corpuscular HGB CONC 32.5 g/dL (32.0-36.0); Mean Corpuscular Hemoglobin 26.1 pg (27.0-31.0); Mean Corpuscular Volume 80.3 fL (78.0-98.0); Mean Platelet Volume 8.4 fL (7.4-10.4); Platelet Count 249 thou/uL (130-400); RBC Distribution Width 12.5 % (11.5-14.5)
[2019-11-25 14:44] LABS: BHCG - Serum Negative (NEGATIVE); Pregs Control Background? CLEAR/WHITE (CLR/WHITE); Pregs Control Bar Appear? YES (CONTROL BAR)
[2019-11-25 15:02] LABS: ALT (SGPT) 57 U/L (8-55); AST (SGOT) 31 U/L (5-34); Albumin 4.2 g/dL (3.5-5.0); Alkaline Phosphatase 105 U/L (40-110); Anion Gap 14 mmol/L (10-20); BUN (Urea Nitrogen) 10 mg/dL (7.0-18.7); Bilirubin, Direct 0.4 mg/dL (0.1-0.3); Bilirubin, Total 1.2 mg/dL (0.2-1.2); Calc. Creatinine Clearance 0 mL/min (70-130); Carbon Dioxide 23 mmol/L (22-29); Chloride 106 mmol/L (98-107); Estimated GFR-MDRD Greater than 90; Glucose 108 mg/dL (70-105); Potassium 3.9 mmol/L (3.5-5.1); Protein, Total 7.1 g/dL (6.0-8.3); Sodium 139 mmol/L (136-145)
[2019-11-25 16:38] LABS: INR-International Normal Ratio 1.4; Prothrombin Time 17.2 sec (12.0-14.7)
[2019-11-25 16:39] LABS: PTT 46.5 sec (22.9-36.1)
[2019-11-25 17:14] LABS: Free T4 (Free Thyroxine) 1.26 ng/dL (0.70-1.48); Thyroid Stimulating Hormone Less than 0.0025 uIU/mL (0.35-4.94)
[2019-11-26 13:42] LABS: SARS-CoV-2 MS2 Positive; SARS-CoV-2 N Gene Negative; SARS-CoV-2 S Gene Negative; SARS-CoV-2 by NAA Not Detected (NotDetected); SARS-CoV-2 orf1ab Negative
== END 2019-11-25 07:51 | disposition home or self-care (01) ==
LOC: LABBT 07:50
PROVIDERS: ATTEND Student in an Organized Health Care Education/Training Program
DX: Z01.812 Encounter for preprocedural laboratory examination (principal); Z20.828 Contact with and (suspected) exposure to other viral communicable diseases
CPT/HCPCS: 80048; 80076; 84439; 84443; 84703; 85027; 85610; 85730; 86850; 86900; 86901; 87635; U0003

== ENCOUNTER 2019-11-30 11:02 | Day surgery (SDC) | payer BC ==
[2019-11-25 11:01] VITALS: BMI 31.8
[~2019-11-30 11:02] MED LIST changes: -Bupivacaine 0.25% HCL 30 ML VIAL ONE; +Dexamethasone 20 MG/5 ML VIAL ONE; +EPHEDRINE 25 MG/5 ML SYRINGE ONE; +Glycopyrrolate 0.2 MG/ML 5 ML SYRINGE ONE; +Lidocaine 1% PF 5 ML VIAL ONE; +Ondansetron PF 4 MG/2 ML Vial ONE; +PROPOFOL 200 MG/20 ML VIAL ONE; +Rocuronium Bromide 10 MG/ML (10ML VIAL) ONE
[2019-11-30] MEDS ORDERED: Famotidine/PF 20 mg/2ml Vial ONE (11:16)
[2019-11-30] MEDS ORDERED: CeleCOXIB 100 MG CAP ONE (11:16)
[2019-11-30] MEDS ORDERED: Gabapentin 300 MG CAP ONE (11:16)
[2019-11-30] MEDS ORDERED: Gentamicin 80 MG/2 ML VIAL ONE (11:19)
[2019-11-30] MEDS ORDERED: metroNIDAZOLE 500 MG/100 ML BAG ONE (11:20)
[2019-11-30 11:38] LABS: PTT 33.1 sec (22.9-36.1)
[2019-11-30] MEDS ORDERED: Clindamycin/D5W 900 mg/50 ml Premix Bag ONE (12:13)
[2019-11-30] MEDS ORDERED: Levofloxacin 500 mg/D5W 100 ml Premix Bag ONE (12:13)
[2019-11-30] MEDS ORDERED: Clindamycin/D5W 900 MG in Premix Bag 1 BAG IVPB SCH (12:15)
[2019-11-30] MEDS ORDERED: Gentamicin Sulfate 400 MG in Sodium Chloride 0.9% 100 ML IVPB SCH (12:15)
[2019-11-30] MEDS ORDERED: Fentanyl 100 MCG/2 ML VIAL ONE ×4 (12:27→14:50)
[2019-11-30] MEDS ORDERED: Midazolam HCl 2 mg/2 ml Vial ONE (12:27)
[2019-11-30] MEDS ORDERED: Lidocaine 1% w/Epinephrine 1:100K 20 ML VIAL ONE (12:39)
[2019-11-30] MEDS ORDERED: Bupivacaine 0.25% HCL 30 ML VIAL ONE (12:39)
[2019-11-30] MEDS ORDERED: Sterile Water 10 ML ONE (14:04)
[2019-11-30] MEDS ORDERED: Ondansetron PF 4 MG/2 ML Vial ONE (14:50)
[2019-11-30] MEDS ORDERED: Promethazine HCl 25 MG/ML VIAL ONE (15:08)
[2019-11-30] MEDS ORDERED: HYDROcodone/Acetaminophen 5/325 mg Tablet ONE ×2 (18:08→20:46)
--- NOTE | 2019-12-02 18:43 | OP ---
DATE OF PROCEDURE: 11/30/2019 PREOPERATIVE DIAGNOSES: 1. Stress urinary incontinence. 2. Sterilization. 3. Family history of breast cancer. POSTOPERATIVE DIAGNOSES: 1. Stress urinary incontinence. 2. Sterilization. 3. Family history of breast cancer. PROCEDURES PERFORMED: 1. Laparoscopic bilateral salpingectomy. 2. Midurethral sling with [employer] Advantage Fit. 3. Cystoscopy. ANESTHESIA: General endotracheal. DIE MAKER SURGEON: Soraida Wu PA-C ESTIMATED BLOOD LOSS: 100 mL. COMPLICATIONS: None. DRAINS: Tripp catheter. PATHOLOGY: Bilateral fallopian tubes. FINDINGS: Several endometriotic implants. Left ovary adherent to the pelvic sidewall. Normal-appearing fallopian tubes and ovaries as well as the uterus. DESCRIPTION OF PROCEDURE: The patient was taken to the operating room where general anesthesia was obtained without difficulty. The patient was prepped and draped in a sterile fashion in dorsal lithotomy position. A Tripp catheter was placed in the bladder. A speculum was placed in the vagina. The anterior lip of the cervix was grasped with single-tooth tenaculum. The single-tooth Hulka was then placed at the cervix. Tenaculum and speculum were removed. Legs were placed in low lithotomy. Attention was turned to the abdomen. Anesthetic mixture was infiltrated into the umbilicus and a 5 mm skin incision was made. The Veress needle was passed into the abdomen, noting an opening pressure of 4 mmHg. Pneumoperitoneum was obtained without difficulty. The Veress needle was removed and a 5 mm trocar and camera were passed into the abdomen optically. Trendelenburg was obtained. Right and left lower quadrant 5-mm ports were placed under direct visualization after infiltrating with anesthetic mixture. The left fallopian tube was then grasped and elevated and the LigaSure was used to cauterize and incise the mesosalpinx from lateral to medial. The medial portion was then clamped across, cauterized, and incised and the fallopian tube was placed in the anterior cul-de-sac. The same procedure was performed on the right side. Hemostasis was noted to be excellent. Irrigation was performed of the pelvis. Some of the adhesions of the left ovary were then peeled away bluntly. The fallopian tubes were then removed out of the trocars under direct visualization. Pneumoperitoneum was released and trocars and instruments were removed out of the abdomen. The skin was closed with a 4-0 Monocryl in a subcuticular fashion and Dermabond was applied. Attention was then turned to the vagina where the midurethra was identified and a weighted speculum was placed in the vagina. The midurethra was grasped and the proximal and distal aspects with Allis clamps and the suburethral space was infiltrated with anesthetic mixture. An incision was made over the midurethra and Metzenbaums were used to dissect out the suburethral and subpubic space bilaterally. The area just above the pubic bone where the trocars with exit were then marked with a marking pen. Saline was used to hydrodissect the retropubic space with a spinal needle, x60 mL per side. The Tripp catheter was then deflated and a bladder guidewire was inserted in order to deviate the bladder. The bladder was deviated initially over to the left side. The [employer] Advantage Fit sling was opened and the trocar was placed over the sling. The sling was then initially thrown on the right side. The contralateral side was also placed without difficulty. At that time, the sling was secured at the anterior pubic bone. A 70-degree cystoscope was then assembled. The Tripp catheter was removed and the cysto was inserted into the bladder and the bladder was allowed to fill. Initially, there were no abnormalities in the bladder mucosa. Bilateral courses where the sling laid were examined thoroughly and there was no entry into the bladder. The ureters were visualized bilaterally and vigorous ureteral efflux was noted bilaterally. The cystoscope was then removed. The sling was then tightened by pulling the tabs at the anterior pubic bone and also putting a pair of scissors in between the midurethra and the mesh tape in order to appropriately tighten the sling. It was ensured not to overtighten the sling. Once the plastic cover had been removed anteriorly, the remainder of the mesh tape was cut at the pubic bone and Dermabond was applied to these areas. The pressure was held against the retropubic space and an additional 10 mL of water was placed into the Tripp balloon and pressure was held against the retropubic space with this balloon as well. There was some bleeding and the patient had been on blood thinners secondary to her history of a PE. This was not excessive, however. Once the bleeding slowed down, the incision was closed with a 2-0 Vicryl in a running fashion and excellent hemostasis was noted. Moistened Kerlix was placed into the vagina for packing and all instruments were removed out of the vagina. The patient tolerated the procedure well. Sponge, lap, and needle counts correct x2. The patient was taken to Recovery in stable condition. The patient received Ancef 2 g prior to the procedure. Job ID: [id number]
== END 2019-11-30 21:02 | disposition home or self-care (01) ==
LOC: SDC 11:02
PROVIDERS: ATTEND Student in an Organized Health Care Education/Training Program
PROC: 0UT74ZZ Resection of Bilateral Fallopian Tubes, Percutaneous Endoscopic Approach (ICD-10-PCS; principal; 2019-11-30)
PROC: 0TSD0ZZ Reposition Urethra, Open Approach (ICD-10-PCS; 2019-11-30)
DX: Z30.2 Encounter for sterilization (principal); N39.3 Stress incontinence (female) (male); M06.9 Rheumatoid arthritis, unspecified; Z15.01 Genetic susceptibility to malignant neoplasm of breast; Z79.01 Long term (current) use of anticoagulants; Z79.899 Other long term (current) drug therapy; Z80.3 Family history of malignant neoplasm of breast; Z80.41 Family history of malignant neoplasm of ovary
CPT/HCPCS: 36415; 85610; 85730; 88305; C1781; J1100; J1580; J1956; J2250; J2405; J2550; J2704; J3010; J3490; S0020; S0028

== ENCOUNTER 2023-06-29 11:13 | Emergency (ER) | payer BC, OTHER ==
[2023-06-29] MEDS ORDERED: Iopamidol-370 76% 500 ML MDV (1 ML CHARGE) ONE (11:31)
[2023-06-29 12:14] LABS: #Basophils 0.03 10x3/uL (0.0-0.2); %Basophils 0.5 % (0.0-1.0); %Eosinophils 1.7 % (0.0-10.0); %Lymphocytes 33.9 % (21.0-51.0); %Monocytes 6.6 % (0.0-10.0); Hematocrit 40.2 % (36.0-47.0); Hemoglobin 13.9 g/dL (12.0-16.0); Mean Corpuscular HGB CONC 34.6 g/dL (32.0-36.0); Mean Corpuscular Hemoglobin 30.6 pg (27.0-31.0); Mean Corpuscular Volume 88.5 fL (78.0-98.0); Mean Platelet Volume 9.2 fL (7.4-10.4); Platelet Count 262 10x3/uL (130-400); RBC Distribution Width 12.1 % (11.5-14.5); Red Blood Cell (RBC) Count 4.54 mill/uL (4.20-5.40)
[2023-06-29 12:30] LABS: BHCG - Serum Negative (NEGATIVE); Pregs Control Background? CLEAR/WHITE (CLR/WHITE); Pregs Control Bar Appear? YES (CONTROL BAR)
[2023-06-29 12:44] LABS: ALT (SGPT) 23 U/L (8-55); AST (SGOT) 16 U/L (5-34); Albumin 4.4 g/dL (3.5-5.0); Alkaline Phosphatase 63 U/L (40-110); Anion Gap 13 mmol/L (10-20); BUN (Urea Nitrogen) 12 mg/dL (7.0-18.7); Bilirubin, Total 0.8 mg/dL (0.2-1.2); Calc. Creatinine Clearance 0 mL/min (70-130); Calcium 9.1 mg/dL (7.8-10.44); Carbon Dioxide 24 mmol/L (22-29); Chloride 105 mmol/L (98-107); Estimated GFR 108; Globulin 3.4 g/dL (2.4-3.5); Glucose 81 mg/dL (70-105); Lipase 66 U/L (8-78); Potassium 3.9 mmol/L (3.5-5.1); Protein, Total 7.8 g/dL (6.0-8.3); Sodium 138 mmol/L (136-145)
[2023-06-29 13:09] LABS: Bacteria/HPF 4+ HPF (None Seen); Bilirubin Negative (Negative); Blood, Urine Negative (Negative); CAUTI Indications for Culture Dysuria,urgency,freq; Clarity Clear (Clear); Glucose, Urine (Dipstick) Normal (Negative); Ketone, Urine Negative (Negative); Leukocyte 75 Leu/uL (Negative); Nitrite 1+ (Negative); Protein, Urine (Dipstick) Negative (Neg-Trace); RBC/HPF 0-3 HPF (0-3); Specific Gravity, Urine 1.005 (1.002-1.036); Squamous Epithelial 0-3 HPF (0-3); Urobilinogen Normal mg/dL (Less than 2); pH, Urine 6.5 (5.0-9.0)
[2023-06-29 13:11] LABS: Urine Culture Reflex No No
== END 2023-06-29 14:37 | disposition home or self-care (01) ==
LOC: ERS 11:13
DX: K59.00 Constipation, unspecified (principal); N39.0 Urinary tract infection, site not specified; Z55.6 Problems related to health literacy; Z90.49 Acquired absence of other specified parts of digestive tract; Z90.89 Acquired absence of other organs
CPT/HCPCS: 36415; 74177; 80053; 81001; 83690; 84703; 85025; Q9967